=== PATIENT | female | born 2000 | race Caucasian/White ===

== ENCOUNTER 2025-10-12 12:38 | Outpatient (AMB) | payer OTHER, SELFPAY ==
--- NOTE | 2025-10-12 12:55 | A.OFFVIS_ITS ---
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 Sleep study scanned in with referral no ledge able. Will fax for new copy. Exercise Instruct Required: No Accompanied by: Self / Same As Patient Allergies latex Allergy (Mild, Verified 10/12/25 13:00) Rash HPI Comments Details: 25 year old female with hypersomnia is referred to us by [facility] Dr. Rice for an evalaution of sleep difficulties. PMH of mild moni with binge eating disorder and Anorexia, she was hospitalized at the age of 14. 02/2023 HST c/w with AHI of 6/hr and oxygen desaturation is not significant at 94%. REM latency 2min. 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 She recently moved from [place] and collin like to be evaluated for Narcolepsy, due to chronic fatigue. She is always grant respiratory illnesses monthly. She goes to bed at 10pm and wakes up at 10am and has an oral appliance for mild MONI, which she uses daily however wakes up with soreness and jaw pain daily. She has morning headaches which improve with coffee, her diet and mood is well managed. She has a therapist at [facility] in [facility], [facility], and a fiance who is supportive. She would like to start tapering off of medications safely however she has concerns since she has been on zoloft 125mg for panic attacks and eating disorder since she was 14 and started abilify at the age of 19 years of age. Denies smoking cigarettes, MJ, edibles, and alcohol use is socially. 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 Physical Exam Vital Signs: Last Vital Signs Pulse 79 10/12/25 12:58 BP 124/76 10/12/25 12:58 Pulse Ox 98 10/12/25 12:58 Oxygen Delivery Method Room Air 10/12/25 12:58 BMI result Body Mass Index 37.6 Const General: cooperative, comfortable and no acute distress Nutritional Appearance: obese Orientation/consciousness: patient oriented x3 HEENT Face and sinus: Yes face symmetric Throat: Yes other (mallamti score is 4) Eyes Pupils: Equal, round and reactive pupils present Neck Neck: Yes full ROM Resp Effort & Inspection: normal respiratory effort and able to speak in complete sentences Neuro General: patient oriented x3 and moves all extremities Cranial nerves: Yes Equal, round and reactive pupils present, Yes Normal accommodation reflex present, Yes Normal facial strength present, Yes Midline tongue present, Yes Ability to bilaterally rotate head present and Yes Ability to bilaterally elevate shoulders present Gait exam (Neuro): Normal gait present Psych Appearance: grossly normal Mental Status: mental status grossly normal Speech and movement: Normal speech and movement present Affect: normal affect Attitude: cooperative Thought process: Normal thought process present Results Reviewed Results Reviewed: sleep study reviewed with pt mild moni AHI is 6/hr, REM sleep onset 1.9min. Assessment & Plan Assessment & Plan (1) Hypersomnia: Comment: mild moni AHI is 6/hr EDS REM onset 1.9min. Code(s): G47.10 - Hypersomnia, unspecified Category: Medical (2) MONI (obstructive sleep apnea): Comment: mild Code(s): G47.33 - Obstructive sleep apnea (adult) (pediatric) Category: Medical (3) Binge eating disorder in remission: Code(s): F50.814 - Binge eating disorder, in remission Category: Medical Plan Excessive Daytime Sleepiness/ Hypersomnia / Narcolepsy? PSG with MSLT once titration of SSRI 125mg po daily of Zoloft and Abilify 5mg po qam. PT is to speak with her psychiatrist for a safe taper. We discussed about LP csf fluid to check for low / abnormal orexin /hypocretin levels, to r/o Narcolepsy. Labs Pscyhiatrist referral in the local area to taper meds Abilify and zoloft for MSLT / PSG in lab testing to r/o Narcolepsy. Orders: Orders Comprehensive Met. Panel 10/13/25 G47.10 - Hypersomnia, unspecified Ferritin 10/13/25 G47.10 - Hypersomnia, unspecified Vitamin B12 and Folate 10/13/25 G47.10 - Hypersomnia, unspecified TSH reflex Free T4 10/13/25 G47.10 - Hypersomnia, unspecified Methylmalonic Acid 10/13/25 G47.10 - Hypersomnia, unspecified, G47.9 - Sleep disorder, unspecified, R53.83 - Other fatigue Complete Blood Count no Diff 10/13/25 G47.10 - Hypersomnia, unspecified, G47.33 - Obstructive sleep apnea (adult) (pediatric) Homocysteine 10/13/25 G47.10 - Hypersomnia, unspecified, G47.9 - Sleep disorder, unspecified, R53.83 - Other fatigue Vitamin D 25-OH Total 10/13/25 G47.10 - Hypersomnia, unspecified RT PSG in-lab sleep study Today G47.10 - Hypersomnia, unspecified, G47.33 - Obstructive sleep apnea (adult) (pediatric) RT sleep testing - MSLT Today G47.10 - Hypersomnia, unspecified, G47.33 - Obstructive sleep apnea (adult) (pediatric) Referrals Psychiatry Outpatient Consultation Service F32.A - Depression, unspecified, F50.814 - Binge eating disorder, in remission Patient Instructions: Please complete the following fasting labs to rule out deficiencies. CBC/CMP/ B12/ Vit D/ TSH/ Homocysteine and MMA/ Ferritin. Sleep Hygiene provided: set a scheduled bedtime and wake time to help regulate the circadian rhythm and balance the release of pituitary hormones. Sleep in a dark room, temperatures below 68 degrees, and no devices n bed. Limit caffeinated products 6 hours prior to bed, and limit fluids 2-4 hours prior to bed. Gentle night yoga, diffusing essential oils, and playing soft music can be relaxing. MSLT to r/o Narcolepsy based on SOREMS. Coding Level of Care Code New Pt Level 4 (11505) Diagnoses Hypersomnia G47.10 MONI (obstructive sleep apnea) G47.33 Binge eating disorder in remission F50.814 Sleep Questionnaire Difficulty falling asleep: No Difficulty staying asleep?: No Number of arousals: 1-2 Snoring: Yes Witnessed apneas: Yes Gasping arousals: Yes Nocturia: No GERD: No Vivid dreams: No Acting out dreams: No Abnormal behavior in sleep: No Abnormal movements in sleep: No Morning headaches: No Excessive daytime sleepiness: No Daytime naps: Yes (1 hour daily) Restless legs: No Hallucinations: No Sleep paralysis: No Drop attacks: No Sleep Study: Yes CPAP: No [place] Sleepiness Scale Questions Sitting and reading: slight chance of dozing Watching TV: moderate chance of dozing Sitting inactive in a theater, movie etc.: would never doze As a passenger in a car for an hour without break: slight chance of dozing Lying down in the afternoon when circumstances permit: high chance of dozing Sitting and talking to someone: would never doze Sitting quietly after lunch without alcohol: slight chance of dozing In a car, while stopped for a few minutes in the traffic: would never doze ESS < 10: normal, ESS > 12: pathologic: 8
[2025-10-12 12:58] VITALS: BP 124/76; PULSE 79; O2SAT 98; BMI 37.6
--- OUTSIDE RECORDS SUMMARY | 2025-10-12 16:32 | XMS_ITS | Clinical Summary ---
Author Organization [facility] Address [address] [place] [address] Care Team Providers Care Poultry Tender Name Role Phone Pcp, No Primary Care Provider Unavailabl e Encounters Date Type Department Care Team Description 08/09/2025 1:00 PM EDT Office Visit [facility] [address] [place] [phone] Masood Villatoro MD Mild NEHA (obstructive sleep apnea) (Primary Dx); Chronic tonsillitis; Chronic rhinitis from Last 3 Months Social History Tobacco Use Types Packs/Day Years Used Date Smoking Tobacco: Never Assessed Comments Unknown Sex and Gender Information Value Date Recorded Sex Assigned at Female 08/06/2025 10:12 AM EDT Legal Sex Female 10:09 AM EDT Gender Identity Female 08/06/2025 10:12 AM EDT Sexual Orientation Heterosexual (straight) 08/06 10:12 AM EDT Plan of Treatment Upcoming Encounters Date Type Department Care Team (Late st Contact Info) Description 12/06/2025 2:45 PM EST Consult [facility] [address] [place] [phone] Alejandra Crowder PA [address] [place] [address] Health Maintenance Due Date Last Done Comments Hepatitis C Virus Screening 2001 HIV Screening 2014 HPV Vaccines (1 - 3-dose series) 2016 DTaP/Tdap/Td Vaccines (1 - Tdap) 2020 Hepatitis B Vaccines (1 of 3 - 19+ 3-dose series) 2020 Pap Smear (Ages 21-65) 2022 Influenza Vaccine 05/14/2025 COVID-19 Vaccine (2024-2 6 season) 2025 Pneumococcal Vaccine: Pediat ayesha (0-5 Years) and At-Risk Patients (6 to 49 Years) Aged Out No longer eligible b ased on patient's age to complete this topic Insurance [facility] Care Teams Poultry Tender Relationship Specialty Start Date End Date Pcp, No PCP - General General Medicine 08/24/25
--- OUTSIDE RECORDS SUMMARY | 2025-10-12 16:32 | XMS_ITS ---
Author Name [facility] Organization Unknown Problems Problem Status Onset Date Problem Type Date of Resoluti on Source Chronic tonsillitis active EncounterDiagnosisAc t [facility] NEHA (obstructive sleep apnea) active EncounterDiagnosisAct [facility] Chronic rhinitis active EncounterDiagnosisAct [facility] Encounters Encounter Type Encounter Reason Primary Diagnosis Location Date Ambulatory [place] [facility] 08/09/2025 Care Team Organization Name Specialty Phone Email Start Date End Da te [facility] NO PCP Primary Care 08/24/2025 [facility] 08/10/2025 09/07/2025 [facility] 07/05/2025
== END 2025-10-12 13:48 | disposition home or self-care (01) ==
LOC: HO.HSMS 12:38
PROVIDERS: Visit Provider Physician Assistant Medical
DX: G47.10 Hypersomnia, unspecified (principal); G47.33 Obstructive sleep apnea (adult) (pediatric); F50.81 Binge eating disorder
CPT/HCPCS: 99204

== ENCOUNTER 2025-10-13 08:48 | Outpatient (REF) | payer OTHER, SELFPAY ==
--- OUTSIDE RECORDS SUMMARY | 2025-10-13 08:55 | XMS_ITS | Clinical Summary ---
Author Organization [facility] Address [address] [place] [address] Care Team Providers Care Library Monitor Name Role Phone Pcp, No Primary Care Provider Unavailabl e Encounters Date Type Department Care Team Description 08/09/2025 1:00 PM EDT Office Visit [facility] [address] [place] [phone] Masood Villatoro MD Mild NEHA (obstructive sleep [...] Info) Description 12/06/2025 2:45 PM EST Consult [facility] [address] [place] [phone] Alejandra Crowder PA [address] [place] [address] Health Maintenance Due Date Last Done Comments [...] patient's age to complete this topic Insurance [facility] Care Teams Library Monitor Relationship Specialty Start Date End Date Pcp, No PCP - General General Medicine 08/24/25
[2025-10-13 14:06] LABS: Hematocrit 45.9 % (37.0-47.0); Hemoglobin 14.6 g/dl (12.0-16.0); Mean Corpuscular HGB Conc 31.8 g/dl (31.0-35.0); Mean Corpuscular Hemoglobin 26.9 pg (27.0-33.0); Mean Corpuscular Volume 84.5 fL (80.0-98.0); NRBC Abs Auto 0.000 X10*3/uL (0.0-0.012); NRBC Pct Auto 0.0 /100WBC (0.0-0.2); Platelet Count 361 X10*3/uL (160-400); Red Blood Count 5.43 X10*6/uL (4.20-5.50); White Blood Count 5.8 X10*3/uL (4.8-10.8)
[2025-10-13 14:56] LABS: Alanine Aminotransferase 31 U/L (0-31); Albumin Level 4.5 g/dL (3.5-5.0); Alkaline Phosphatase 75 U/L (39-117); Anion Gap 12 (12-20); Aspartate Amino Transferase 28 U/L (5-31); Blood Urea Nitrogen 13 mg/dL (9-16); Calcium 9.7 mg/dL (8.4-10.2); Carbon Dioxide 26 mmol/L (22-29); Chloride 108 mmol/L (96-108); Estimated Glomerular Filt Rate > 60; Potassium 4.5 mmol/L (3.3-5.1); Sodium 141 mmol/L (135-145); Total Protein 7.6 g/dL (6.5-8.0)
[2025-10-13 15:01] LABS: Ferritin 110 ng/mL (10-122)
[2025-10-13 15:18] LABS: Folate 7.3 ng/mL (> or = 4.0); Vitamin B12 305 pg/mL (200-900)
== END 2025-10-13 08:49 | disposition home or self-care (01) ==
LOC: HO.HKASLDS 08:48
PROVIDERS: Visit Provider Physician Assistant Medical
DX: G47.33 Obstructive sleep apnea (adult) (pediatric) (principal); G47.10 Hypersomnia, unspecified; R53.83 Other fatigue; Z13.21 Encounter for screening for nutritional disorder; Z13.6 Encounter for screening for cardiovascular disorders
CPT/HCPCS: 36415; 80053; 82306; 82607; 82728; 82746; 83090; 83921; 84443; 85027